=== PATIENT | female | born 1985 | race Caucasian/White ===

== ENCOUNTER → 2018-11-12 12:11 | Outpatient (CLI) | payer OTHER, SELFPAY ==
--- NOTE | 2018-11-12 | DI.US.S_ITS ---
PROCEDURE: US THYROID INDICATIONS: FAMILY HISTORY THYROID CANCER TECHNIQUE: Real-time scanning was performed of the thyroid gland, with image documentation. COMPARISON: [facility], [place], THYROID, 10/29/2016, 9:04. FINDINGS: Right: Mild generalized heterogeneity without nodules. The gland measures 1.2 x 1.7 x 4.2 cm, normal. Left: As was seen on the right the left gland is mildly heterogeneous diffusely, without nodules. The gland measures 1.3 x 1.4 x 4.0 cm and contains a 4 mm simple cyst in its upper third. Isthmus: 2.6 mm thickness. IMPRESSION: Mild glandular heterogeneity, no thyroid nodules found. Small simple 4 mm cyst incidentally noted upper third left thyroid lobe. Dictated by: Otis Rodgers M.D. on 11/12/2018 at 13:35 Approved by: Otis Rodgers M.D. on 11/12/2018 at 13:48
--- NOTE | 2018-11-12 | DI.US.S_ITS ---
PROCEDURE: US ABDOMEN COMPLETE INDICATIONS: PAIN TECHNIQUE: Real-time scanning was performed of the abdominal and retroperitoneal organs, with image documentation. COMPARISON: None. FINDINGS: Liver: Liver is normal in size and homogeneous in echotexture. Gallbladder: Gallbladder appears normal. Biliary ducts: Intrahepatic bile ducts are non-dilated. Extrahepatic bile duct caliber measures 3.1 mm. Normal is 6-7 mm or less in diameter, or 10 mm or less post-cholecystectomy. Pancreas: Visualized portions of the pancreas are sonographically normal. Spleen: Spleen is normal in size and homogeneous in echotexture. Kidneys: Kidneys are normal in size and echotexture. Right kidney measures 11.3 cm long; left kidney measures 10.5 cm long. No hydronephrosis or nephrolithiasis. No solid masses. Aorta: Visualized aorta is normal in caliber at less than 3 cm. Iliacs: Proximal common iliac arteries are normal in caliber at less than 2.5 cm. IVC: Intrahepatic inferior vena cava is patent. Miscellaneous: No free abdominal fluid. REFERENCE MATERIALS normal abdominalR White Paper: Incidental Findings of Gallbladder and Biliary Tract on CT/MRI * Gallstones without mass: perform US only if symptomatic. * Gallbladder calcification (porcelain GB) without mass: only 5-7% increased risk of GB CA. No followup is specifically recommended, but can be performed at clinicians' discretion, using post-contrast CT. * Dense GB contents (20-100 HU): sludge, vicarious contrast excretion, hemorrhage, or stones. No specific followup needed. * Diffuse GB wall thickening >3 mm, without mass: hepatitis, CHF, liver disease, hypoproteinemia, or pancreatitis. No specific followup needed. * Focal GB wall thickening or mass: polyp, GB CA, cholesterolosis, adenomyomatosis. Evaluation and followup depends on mass size and clinical factors. US may have specific features for adenomyomatosis. * GB polyp 6 mm or less: benign, no followup needed. * GB polyp 7-9 mm: benign, adenoma vs small CA. Yearly US followup, with surgical consult if size increase. * GB polyp 10 mm or larger: surgical consult. * Pericholecystic fluid: GB perforation or other collection: individual assessment needed. * Distended GB (greater than 9 x 4 cm): GB obstruction or simply a fasting state. No further evaluation if asymptomatic. * Biliary duct dilation: >6-7 mm diameter, or >10 mm s/p cholecystectomy. Recommend correlation with LFT's. If LFT's abnormal, consider MRCP, ERCP, or endoscopic US for evaluation. IMPRESSION: Normal abdominal ultrasound, source of right upper quadrant pain is not seen. Dictated by: Otis Rodgers M.D. on 11/12/2018 at 13:48 Approved by: Otis Rodgers M.D. on 11/12/2018 at 13:49
== END ==
PROVIDERS: PCP Family Medicine; Visit Provider Family Medicine
DX: R10.11 Right upper quadrant pain (principal); E04.1 Nontoxic single thyroid nodule; Z80.8 Family history of malignant neoplasm of other organs or systems
CPT/HCPCS: 76536; 76700

== ENCOUNTER → 2018-12-02 12:03 | Outpatient (CLI) | payer OTHER, SELFPAY ==
--- NOTE | 2018-12-02 | DI.NM.S_ITS ---
PROCEDURE: NM HIDA WITH CCK PHARMACEUTICAL: 5.2 mCi Tc-99m mebrofenin IV; 1.2 mcg CCK IV. INDICATIONS: BILIARY COLIC TECHNIQUE: Following intravenous administration of Tc-99m mebrofenin, sequential anterior abdominal images were obtained. To evaluate the contractile response of the gallbladder in response to Cholecystokinin (CCK), sincalide (0.02 ?g/kg) was administered by slow intravenous infusion approximately 60 minutes after the administration of the radiopharmaceutical. Sequential imaging was continued for 30 minutes after the start of CCK infusion. Gallbladder ejection fraction was calculated. COMPARISON: [facility], , US ABDOMEN COMPLETE, 11/12/2018, 12:31. FINDINGS: Biliary scan: There is normal tracer uptake and excretion by the liver. There is normal visualization of the intrahepatic ducts, common bile duct, and gallbladder. There is normal tracer transit into the duodenum. CCK stimulation: There is normal contractile response of the gallbladder to CCK infusion. The calculated gallbladder ejection fraction is normal however fraction was not measured due to low residual (below threshold) It has been shown that any patient abdominal pain after CCK administration is related to the rate of CCK injection, rather than to any underlying gallbladder disease (Clinical Nuclear Medicine 2012; 37: 63-70. Journal of Nuclear Medicine 2014; 55: 1-9). IMPRESSION: Normal examination. Dictated by: Gigi Boss M.D. on 12/02/2018 at 15:52 Approved by: Gigi Boss M.D. on 12/02/2018 at 16:06
== END ==
PROVIDERS: PCP Family Medicine; Visit Provider Family Medicine
DX: K80.50 Calculus of bile duct without cholangitis or cholecystitis without obstruction (principal)
CPT/HCPCS: 78226; A9537